=== PATIENT | female | born 1950 | race Caucasian/White ===

== ENCOUNTER 2019-04-28 09:29 | Emergency (ER) | payer MEDICARE, OTHER ==
[2019-04-28] MEDS ORDERED: Gabapentin 300 MG Cap PO ONE (09:55)
[2019-04-28] MEDS ORDERED: Ketorolac 30 MG/ML SDV IM ONE (09:55)
--- NOTE | 2019-04-28 10:04 | EDM.PDOC ---
ED HPI GENERAL MEDICAL PROBLEM - General Chief Complaint: Upper Extremity Injury/Pain Stated Complaint: PAIN IN UPPER LEFT CHEST/SHOULDER AND NECK Time Seen by Provider: 04/28/19 09:45 Source of Information: Reports: Patient History Limitations: Reports: No Limitations - History of Present Illness INITIAL COMMENTS - FREE TEXT/NARRATIVE: Patient comes into the emergency department with complaint of left sided back and axillary discomfort. Patient states she did receive a single vaccine earlier in the week in the left arm and did not have any significant difficulties or complications. She did not redness at the site but that resolved within a day. Patient started having pain and discomfort in the above area about 3 days ago. She states it is pinpoint, reproducible, hurts to move or extend her arms over her head, or take a deep breath. She states that someone does try to touch the region of her left scapular region it was illicit severe amount of pain and discomfort. Patient states she was lifting an object overhead when the injury occurred. She did call the clinic to make an appointment however they stated that she needed to be seen in the emergency department. Patient denies any chest pain, shortness of breath, nausea, vomiting , diaphoresis, GI upset, or peripheral edema. Onset: Gradual Duration: Constant Location: Reports: Back Quality: Reports: Burning, Stabbing, Throbbing Severity: Moderate Improves with: Reports: None Worsens with: Reports: None Associated Symptoms: Reports: No Other Symptoms Left Upper Arm Pain Score (Numeric/FACES): 7 - Related Data Allergies Allergy/AdvReac Type Severity Reaction Status Date / Time rofecoxib [From Vioxx] Allergy Cannot Verified 04/28/19 09:[address] contrast Allergy Itching Uncoded 09/03/18 11:56 Home Meds: Home Meds ALPRAZolam [Xanax] 0.25 mg PO Q8H PRN 03/20/16 [History] Albuterol [Ventolin HFA] 1 - 2 puff INH Q4H PRN 03/20/16 [History] Budesonide/Formoterol Fumarate [Symbicort 160-4.5 Mcg Inhaler] 1 puff IH Q4H PRN 03/20/16 [History] Cholecalciferol (Vitamin D3) [Vitamin D3] 1,000 unit PO DAILY 03/20/16 [History] Losartan [Cozaar] 100 mg PO DAILY 03/20/16 [History] Multivitamin [Multivitamins] 1 each PO DAILY 03/20/16 [History] Simvastatin [Zocor] 5 mg PO BEDTIME 03/20/16 [History] hydrOXYzine HCl [Atarax] 25 mg PO QID PRN 03/20/16 [History] hydroCHLOROthiazide [Hydrochlorothiazide] 50 mg PO DAILY 03/20/16 [History] Cyclobenzaprine [Flexeril] 10 mg PO TID PRN #15 tab 04/28/19 [Rx] Past Medical History Cardiovascular History: Reports: High Cholesterol, Hypertension Respiratory History: Reports: Asthma Genitourinary History: Reports: Renal Calculus, UTI, Recurrent Review of Systems - Review of Systems Review Of Systems: See Below Constitutional: Reports: No Symptoms Eyes: Reports: No Symptoms Ears: Reports: No Symptoms Nose: Reports: No Symptoms Mouth/Throat: Reports: No Symptoms Respiratory: Reports: No Symptoms Cardiovascular: Reports: No Symptoms GI/Abdominal: Reports: No Symptoms Genitourinary: Reports: No Symptoms Musculoskeletal: Reports: No Symptoms Skin: Reports: No Symptoms Neurological: Reports: No Symptoms ED EXAM, GENERAL - Physical Exam Exam: See Below Exam Limited By: No Limitations General Appearance: Alert, WD/WN, Moderate Distress Head: Atraumatic, Normocephalic Neck: Normal Inspection, Supple, Non-Tender, Full Range of Motion Respiratory/Chest: No Respiratory Distress, Lungs Clear, Normal Breath Sounds, No Accessory Muscle Use, Chest Non-Tender Cardiovascular: Normal Peripheral Pulses, Regular Rate, Rhythm, No Edema, No Murmur GI/Abdominal: Normal Bowel Sounds, Soft, Non-Tender, No Distention Back Exam: Normal Inspection, Full Range of Motion, Muscle Spasm (left scapula pinpoint tenderness, mild muscle spasms noted. Reproducible discomfort. No redness, ecchymosis or warmth noted) Extremities: Normal Inspection, Normal Range of Motion Neurological: Alert, Oriented, Normal Gait Skin Exam: Warm, Dry, Intact, Normal Color Course - Vital Signs Last Recorded V/S: Last Vital Signs Temp 37.3 C 04/28/19 09:33 Pulse 89 04/28/19 09:33 Resp 20 04/28/19 09:33 BP 146/68 H 04/28/19 09:33 Pulse Ox 95 04/28/19 09:33 - Orders/Labs/Meds Labs: Laboratory Tests 04/28/19 04/28/19 Range/Units 10:13 10:13 WBC 13.4 H (4.0-10.0) x10^3/uL RBC 4.89 (4.00-5.50) x10^6/uL Hgb 12.7 (12.0-16.0) g/dL Hct 40.0 (33.0-47.0) % MCV 81.8 D (78.0-93.0) fL MCH 26.0 (26.0-32.0) pg MCHC 31.8 L (32.0-36.0) g/dL RDW Coeff of Alyssa 15.3 H (10.0-15.0) % Plt Count 286 (130-400) x10^3/uL Neut % (Auto) 71.5 (50.0-80.0) % Lymph % (Auto) 16.1 L (25.0-50.0) % Bond % (Auto) 8.8 (2.0-11.0) % Eos % (Auto) 3.5 (0.0-4.0) % Baso % (Auto) 0.1 L (0.2-1.2) % Sodium 143 (136-145) mmol/L Potassium 4.3 (3.5-5.1) mmol/L Chloride 101 (98-107) mmol/L Carbon Dioxide 29 (21-32) mmol/L Anion Gap 17.3 (10-20) mmol/L BUN 20 H (7-18) mg/dL Creatinine 0.8 (0.55-1.02) mg/dL Est Cr Clr Drug Dosing TNP Estimated GFR (MDRD) > 60 Glucose 133 H (74-106) mg/dL Calcium 9.8 (8.5-10.1) mg/dL Corrected Calcium 10.12 H (8.5-10.1) mg/dL Total Bilirubin 0.5 (0.2-1.0) mg/dL AST 14 L (15-37) U/L ALT 21 (14-59) U/L Alkaline Phosphatase 86 (46-116) U/L Troponin I < 0.017 (<=0.056) ng/mL Total Protein 8.0 (6.4-8.2) g/dL Albumin 3.6 (3.4-5.0) g/dL Globulin 4.4 Albumin/Globulin Ratio 0.82 Meds: Medications Discontinued Medications Generic Name Dose Route Start Last Admin Trade Name Bryceq PRN Reason Stop Dose Admin Gabapentin 300 mg 04/28/19 09:55 04/28/19 10:31 Neurontin PO 04/28/19 09:56 300 mg ONETIME ONE Administration Ketorolac Tromethamine 30 mg 04/28/19 09:55 04/28/19 10:15 Toradol IM 04/28/19 09:56 30 mg ONETIME ONE Administration Orphenadrine Citrate 60 mg 04/28/19 09:55 04/28/19 10:15 Norflex IM 04/28/19 09:56 60 mg ONETIME ONE Administration Departure - Departure Time of Disposition: 10:53 Disposition: Home, Self-Care 01 Clinical Impression: Spasm - Discharge Information *PRESCRIPTION DRUG MONITORING PROGRAM REVIEWED*: Not Applicable *COPY OF PRESCRIPTION DRUG MONITORING REPORT IN PATIENT ROSARIO: Not Applicable Prescriptions: Cyclobenzaprine [Flexeril] 10 mg PO TID PRN #15 tab PRN Reason: Pain (Severe 7-10) Instructions: Muscle Cramps and Spasms, [id number], Cyclobenzaprine tablets, Gabapentin capsules or tablets, Ketorolac tablets, Heat Therapy, [id number] Referrals: Margie Cervantes MD [Primary Care Provider] - Forms: ED Department Discharge Additional Instructions: 1. rest 2. can apply ice and heat to the area 3-4 times a day 20 mins each time 3. Can take [id number] Tylenol or ibuprofen help with any pain or discomfort 4. Take muscle relaxants only for moderate to severe pain. Do not drive or operate any heavy machinery for can alter your bodies response 5. activity and diet as tolerated 6. Follow up as needed 7. Call with any questions or concerns Sepsis Event Note - Evaluation Sepsis Screening Result: No Definite Risk - Focused Exam Vital Signs: Vital Signs Temp Pulse Resp BP Pulse Ox 04/28/19 09:33 37.3 C 89 20 146/68 H 95 Date Exam was Performed: 04/28/19 Time Exam was Performed: 10:53 - Problem List Review Problem List Initiated/Reviewed/Updated: Yes - Assessment/Plan Assessment:: 1. Left shoulder pain Plan: 1. EKG completed in the ER. Results reviewed with the patient 2. Labs completed in the ER. Results reviewed with patient 3. Toradol, gabapentin, and Norflex given in the emergency department to alleviate pain and discomfort 4. chest x-ray completed in the emergency department 5. Education regarding activity, diet, [id number] medication and follow- up care provided 6. All questions and concerns addressed prior to patient's discharge
[2019-04-28 10:42] LABS: CHLORIDE,CL 101 mmol/L (98-107); SODIUM,NA 143 mmol/L (136-145)
[2019-04-28 10:44] LABS: ANION GAP 17.3 mmol/L (10-20)
--- NOTE | 2019-04-28 10:44 | CR ---
[id number] RAD/RAD Chest PA And Lateral EXAM: RAD Chest PA And Lateral INDICATION: RIGHT SIDE CHEST/BACK PAIN. COMPARISON: None. DISCUSSION: Cardiomediastinal silhouette is normal in size and contour. No infiltrate, effusion, pneumothorax, or edema. Pulmonary hyperinflation. IMPRESSION: No acute cardiopulmonary abnormality. Cameron Johnson DO 04/28/19 1043 Thank you for allowing us to participate in the care of your patient.
== END 2019-04-28 10:54 | disposition home or self-care (01) ==
LOC: VM.ED 09:29
DX: M62.830 Muscle spasm of back (principal); J45.909 Unspecified asthma, uncomplicated; I10 Essential (primary) hypertension; E78.00 Pure hypercholesterolemia, unspecified; Z88.8 Allergy status to other drugs, medicaments and biological substances; Z91.041 Radiographic dye allergy status; Z79.899 Other long term (current) drug therapy
CPT/HCPCS: 36415; 71046; 80053; 84484; 85025; 96372; 99283-25; 99283-GF; A9270-GY; J1885; J2360

== ENCOUNTER 2020-07-01 14:52 | Emergency (ER) | payer MEDICARE, OTHER ==
[2020-07-01] MEDS ORDERED: Sodium Chloride 0.9% 10 ML Syringe FLUSH PRN (14:55)
[2020-07-01] MEDS ORDERED: Ondansetron 4 MG/2 ML SDV IVPUSH ONE (14:57)
[2020-07-01] MEDS ORDERED: HYDROmorphone 1 MG/ML Syringe IVPUSH ONE ×2 (14:57→16:53)
[2020-07-01] MEDS ORDERED: Ketorolac 15 MG/ML SDV IVPUSH ONE (14:58)
[2020-07-01] MEDS ORDERED: Sodium Chloride 0.9% 1,000 ML IV SCH (15:00)
--- NOTE | 2020-07-01 15:18 | EDM.PDOC ---
ED HPI GENERAL MEDICAL PROBLEM - General Stated Complaint: KIDNEY STONE Time Seen by Provider: 07/01/20 14:58 Source of Information: Reports: Patient History Limitations: Reports: No Limitations - History of Present Illness INITIAL COMMENTS - FREE TEXT/NARRATIVE: Pt. presents to ER with complaints of L sided flank pain that started at approx. 1300 this afternoon. Pt. has a longstanding history of kidney stones, and has had numerous surgeries and lithotripsies in the past for this. Last episode was on March for renal calculi with hydronephrosis, where she underwent bilateral stenting, laser lithotripsy and cystoscopy/urethroscopy. She states that the discomfort is consistent with previous stones. Pt. states that she has been experiencing hematuria. She states that this is a common finding. She is not currently anticoagulated. She complains of severe, 7/10 pain. No fever or chills. No chest pain or shortness of breath. Onset: Today Onset Date: 07/01/20 Onset Time: 13:00 Location: Reports: Back (R sided flank pain) Quality: Reports: Sharp, Stabbing Left Flank Pain Score (Numeric/FACES): 7 - Related Data Allergies Allergy/AdvReac Type Severity Reaction Status Date / Time rofecoxib [From Vioxx] Allergy Cannot Verified 07/01/20 15:[address] contrast Allergy Itching Uncoded 07/01/20 15:29 Home Meds: Home Meds ALPRAZolam [Xanax] 0.25 mg PO Q8H PRN 03/20/16 [History] Albuterol [Ventolin HFA] 1 - 2 puff INH Q4H PRN 03/20/16 [History] Cholecalciferol (Vitamin D3) [Vitamin D3] 1,000 unit PO DAILY 03/20/16 [History] Losartan [Cozaar] 100 mg PO DAILY 03/20/16 [History] Multivitamin [Multivitamins] 1 each PO DAILY 03/20/16 [History] Simvastatin [Zocor] 5 mg PO BEDTIME 03/20/16 [History] hydroCHLOROthiazide [Hydrochlorothiazide] 50 mg PO DAILY 03/20/16 [History] Acetaminophen 1,000 mg PO Q6H PRN 07/01/20 [History] Aspirin 81 mg PO DAILY 07/01/20 [History] Fluticasone/Vilanterol [Breo Ellipta 100-25 MCG Inhalation Kit] 1 each IH DAILY 07/01/20 [History] Metoprolol Succinate [Toprol XL] 25 mg PO DAILY 07/01/20 [History] Montelukast [Singulair] 10 mg PO DAILY 07/01/20 [History] metFORMIN [Glucophage XR] 500 mg PO BIDMEALS 07/01/20 [History] Past Medical History Cardiovascular History: Reports: High Cholesterol, Hypertension Respiratory History: Reports: Asthma Genitourinary History: Reports: Renal Calculus, UTI, Recurrent - Past Surgical History GI Surgical History: Reports: Hernia Repair/Other ED ROS GENERAL - Review of Systems Review Of Systems: See Below Constitutional: Reports: No Symptoms HEENT: Reports: No Symptoms Respiratory: Reports: No Symptoms Cardiovascular: Reports: No Symptoms Endocrine: Reports: No Symptoms GI/Abdominal: Reports: No Symptoms : Reports: Flank Pain, Hematuria Musculoskeletal: Reports: No Symptoms Skin: Reports: No Symptoms Neurological: Reports: No Symptoms Psychiatric: Reports: No Symptoms Hematologic/Lymphatic: Reports: No Symptoms Immunologic: Reports: No Symptoms ED EXAM, GENERAL - Physical Exam Exam: See Below Exam Limited By: No Limitations General Appearance: Alert, WD/WN, No Apparent Distress Head: Atraumatic, Normocephalic Neck: Normal Inspection, Supple, Non-Tender Respiratory/Chest: No Respiratory Distress, Lungs Clear, Normal Breath Sounds, No Accessory Muscle Use, Chest Non-Tender Cardiovascular: Normal Peripheral Pulses, Regular Rate, Rhythm, No Edema, No Murmur Peripheral Pulses: 4+: Radial (L) GI/Abdominal: Soft, No Distention, No Mass (Female) Exam: Deferred Rectal (Female) Exam: Deferred Back Exam: Normal Inspection, Full Range of Motion, CVA Tenderness (L) Extremities: Normal Inspection, Normal Range of Motion, Non-Tender, No Pedal Edema, Normal Capillary Refill Neurological: Alert, Oriented, CN II-XII Intact, Normal Cognition, Normal Gait, Normal Reflexes, No Motor/Sensory Deficits Psychiatric: Normal Affect, Normal Mood, Anxious Skin Exam: Warm, Dry, Intact, Normal Color Lymphatic: No Adenopathy Course - Vital Signs Last Recorded V/S: Last Vital Signs Temp 36.8 C 07/01/20 14:58 Pulse 104 H 07/01/20 14:58 Resp 20 07/01/20 14:58 BP 155/82 H 07/01/20 14:58 Pulse Ox 96 07/01/20 14:58 - Orders/Labs/Meds Orders: Active Orders 24 hr Category Date Time Status CULTURE URINE [RM] Stat Lab 07/01/20 15:41 Received Peripheral IV Insertion Adult [OM.PC] Routine Oth 07/01/20 14:56 Ordered Labs: Laboratory Tests 07/01/20 07/01/20 07/01/20 Range/Units 15:05 15:05 15:05 WBC 10.9 H (4.0-10.0) x10^3/uL RBC 4.86 (4.00-5.50) x10^6/uL Hgb 12.8 (12.0-16.0) g/dL Hct 40.2 (33.0-47.0) % MCV 82.7 (78.0-93.0) fL MCH 26.3 (26.0-32.0) pg MCHC 31.8 L (32.0-36.0) g/dL RDW Coeff of Alyssa 15.1 H (10.0-15.0) % Plt Count 307 (130-400) x10^3/uL Neut % (Auto) 62.6 (50.0-80.0) % Lymph % (Auto) 23.8 L (25.0-50.0) % Lea % (Auto) 8.6 (2.0-11.0) % Eos % (Auto) 4.7 H (0.0-4.0) % Baso % (Auto) 0.3 (0.2-1.2) % PT 10.4 (9.9-12.5) SEC INR 0.9 L (2.0-3.5) APTT 24.8 L (25.6-32.8) SEC Sodium 142 (136-145) mmol/L Potassium 3.9 (3.5-5.1) mmol/L Chloride 102 (98-107) mmol/L Carbon Dioxide 28 (21-32) mmol/L Anion Gap 15.9 H (5-15) mmol/L BUN 20 H (7-18) mg/dL Creatinine 0.9 (0.55-1.02) mg/dL Est Cr Clr Drug Dosing TNP Estimated GFR (MDRD) > 60 Glucose 111 H (74-106) mg/dL Calcium 9.4 (8.5-10.1) mg/dL Corrected Calcium 9.64 (8.5-10.1) mg/dL Total Bilirubin 0.4 (0.2-1.0) mg/dL AST 30 (15-37) U/L ALT 41 (14-59) U/L Alkaline Phosphatase 87 (46-116) U/L C-Reactive Protein 1.8 H (<=0.9) mg/dL Total Protein 7.9 (6.4-8.2) g/dL Albumin 3.7 (3.4-5.0) g/dL Globulin 4.2 Albumin/Globulin Ratio 0.88 Urine Color (YELLOW) Urine Appearance (CLEAR) Urine pH (5.0-8.0) Ur Specific Campbell Urine Protein (NEGATIVE) mg/dL Urine Glucose (UA) (NEGATIVE) mg/dL Urine Ketones (NEGATIVE) mg/dL Urine Occult Blood (NEGATIVE) Urine Nitrite (NEGATIVE) Urine Bilirubin (NEGATIVE) Urine Urobilinogen (0.2) EU/dL Ur Leukocyte Esterase (NEGATIVE) Urine RBC (NOT SEEN) /HPF Urine WBC (NOT SEEN) /HPF Ur Squamous Epith Cells (NOT SEEN) /HPF Urine Bacteria (NOT SEEN) /HPF 07/01/ Range/Units 15:41 WBC (4.0-10.0) x10^3/uL RBC (4.00-5.50) x10^6/uL Hgb (12.0-16.0) g/dL Hct (33.0-47.0) % MCV (78.0-93.0) fL MCH (26.0-32.0) pg MCHC (32.0-36.0) g/dL RDW Coeff of Alyssa (10.0-15.0) % Plt Count (130-400) x10^3/uL Neut % (Auto) (50.0-80.0) % Lymph % (Auto) (25.0-50.0) % Lea % (Auto) (2.0-11.0) % Eos % (Auto) (0.0-4.0) % Baso % (Auto) (0.2-1.2) % PT (9.9-12.5) SEC INR (2.0-3.5) APTT (25.6-32.8) SEC Sodium (136-145) mmol/L Potassium (3.5-5.1) mmol/L Chloride (98-107) mmol/L Carbon Dioxide (21-32) mmol/L Anion Gap (5-15) mmol/L BUN (7-18) mg/dL Creatinine (0.55-1.02) mg/dL Est Cr Clr Drug Dosing Estimated GFR (MDRD) Glucose (74-106) mg/dL Calcium (8.5-10.1) mg/dL Corrected Calcium (8.5-10.1) mg/dL Total Bilirubin (0.2-1.0) mg/dL AST (15-37) U/L ALT (14-59) U/L Alkaline Phosphatase (46-116) U/L C-Reactive Protein (<=0.9) mg/dL Total Protein (6.4-8.2) g/dL Albumin (3.4-5.0) g/dL Globulin Albumin/Globulin Ratio Urine Color Yellow (YELLOW) Urine Appearance Slightly cloudy H (CLEAR) Urine pH 7.0 (5.0-8.0) Ur Specific Campbell >=1.030 Urine Protein 30 H (NEGATIVE) mg/dL Urine Glucose (UA) Negative (NEGATIVE) mg/dL Urine Ketones Negative (NEGATIVE) mg/dL Urine Occult Blood Negative (NEGATIVE) Urine Nitrite Negative (NEGATIVE) Urine Bilirubin Negative (NEGATIVE) Urine Urobilinogen 0.2 (0.2) EU/dL Ur Leukocyte Esterase Small H (NEGATIVE) Urine RBC 0-5 (NOT SEEN) /HPF Urine WBC 20-30 H (NOT SEEN) /HPF Ur Squamous Epith Cells Moderate H (NOT SEEN) /HPF Urine Bacteria Few H (NOT SEEN) /HPF Meds: Medications Discontinued Medications Generic Name Dose Route Start Last Admin Trade Name Freq PRN Reason Stop Dose Admin Hydrocodone Bitart/Acetaminophen 1 packet 07/01/20 19:04 07/01/20 19:13 Take Home: Acetaminophen/Hydrocodone 325-10 Mg, 5 Tab Pack PO 07/01/20 19:05 1 packet ONETIME ONE Administration Diphenhydramine HCl 50 mg 07/01/20 17:38 07/01/20 17:43 Diphenhydramine 50 Mg/Ml Sdv IVPUSH 07/01/20 17:39 50 mg ONETIME ONE Administration Hydromorphone HCl 1 mg 07/01/20 14:57 07/01/20 15:13 Hydromorphone 1 Mg/Ml Syringe IVPUSH 07/01/20 14:58 1 mg ONETIME ONE Administration Hydromorphone HCl 1 mg 07/01/20 16:53 07/01/20 16:58 Hydromorphone 1 Mg/Ml Syringe IVPUSH 07/01/20 16:54 1 mg ONETIME ONE Administration Sodium Chloride 1,000 mls @ 1,000 mls/hr 07/01/20 15:00 07/01/20 15:10 Normal Saline IV 1,000 mls/hr ASDIRECTED EUSEBIO Administration Iopamidol 100 ml 07/01/20 17:38 07/01/20 17:38 Iopamidol 612 Mg/Ml 100 Ml Bottle IVPUSH 07/01/20 17:39 100 ml ONETIME ONE Administration Ketorolac Tromethamine 15 mg 07/01/20 14:58 07/01/20 15:11 Ketorolac 15 Mg/Ml Sdv IVPUSH 07/01/20 14:59 15 mg ONETIME ONE Administration Ondansetron HCl 4 mg 07/01/20 14:57 07/01/20 15:10 Ondansetron 4 Mg/2 Ml Sdv IVPUSH 07/01/20 14:58 4 mg ONETIME ONE Administration Sodium Chloride 10 ml 07/01/20 14:55 Sodium Chloride 0.9% 10 Ml Syringe FLUSH ASDIRECTED PRN Keep Vein Open Tamsulosin HCl 0.4 mg 07/01/20 19:05 07/01/20 19:13 Tamsulosin 0.4 Mg Cap.Er PO 07/01/20 19:06 0.4 mg ONETIME ONE Administration - Radiology Interpretation Free Text/Narrative:: Non-contrast CT abdomen/pelvis obtained. 2 mm L ureteral stone with moderate hydro. Also noted to have a 4 mm non-obstructing stone. Pt. has a mass on the L kidney measuring approx. 40mm. Contrast CT abd/pelvis was obtained. Radiologist does not favor metastatic d isease. Urologist feels that the lesion in question is a subcapsular fluid collection that is residual from her last stone extraction surgery. He does not feel that this is secondary to hydronephrosis. - Re-Assessments/Exams Free Text/Narrative Re-Assessment/Exam: IV access established. Pt. was given a liter of NS IV, zofran 4mg IV, dilaudid 1mg IV, and toradol 15mg IV. She reported rapid improvement in discomfort. Pt. states that pain was starting to return. She was given a second dose of dilaudid 1mg IV and was fairly comfortable during the rest of her stay in ER. Pt. did have some mild rash after having the IV dye, but no signs of severe reaction, such as trouble breathing, throat tightness. Symptoms were managed with IV diphenhydramine. Departure - Departure Time of Disposition: 17:00 Disposition: Home, Self-Care 01 Clinical Impression: Kidney stone - Discharge Information Instructions: Acetaminophen; Hydrocodone tablets or capsules, Kidney Stones, Nitrofurantoin tablets or capsules, Tamsulosin capsules, Probiotics Referrals: Margie Cervantes MD [Primary Care Provider] - Forms: ED Department Discharge Additional Instructions: Home to rest. increase your intake of fluids. Aim for 10 large glasses a day. [place] 10/325mg 1 every 4-6 hours as needed for pain Ibuprofen 200mg 3 tabs every 8 hours as needed for pain Flomax 0.4mg 1 tab daily to help pass stone. Marcobid 100mg 1 twice daily for 5 days Diphenhydramine 25mg 2 tabs every 4-6 hours as needed for itching. Collect stones and bring them in to clinic for analysis. If you are having pain that is not amenable to oral pain medication or if you are vomiting/unable to hold down fluids, return to ER (either here or [facility]). Follow-up with Dr. Carrion in the next week or so. Sepsis Event Note (ED) - Focused Exam Vital Signs: Vital Signs Temp Pulse Resp BP Pulse Ox 07/01/20 14:58 36.8 C 104 H 20 155/82 H 96 - Problem List Review Problem List Initiated/Reviewed/Updated: Yes - My Orders Last 24 Hours: My Active Orders 07/01/20 14:56 Peripheral IV Insertion Adult [OM.PC] Routine 07/01/20 15:41 CULTURE URINE [RM] Stat - Assessment/Plan Last 24 Hours: My Active Orders 07/01/20 14:56 Peripheral IV Insertion Adult [OM.PC] Routine 07/01/20 15:41 CULTURE URINE [RM] Stat Plan: Home to rest. increase your intake of fluids. Aim for 10 large glasses a day. [place] 10/325mg 1 every 4-6 hours as needed for pain Ibuprofen 200mg 3 tabs every 8 hours as needed for pain Flomax 0.4mg 1 tab daily to help pass stone. Marcobid 100mg 1 twice daily for 5 days Diphenhydramine 25mg 2 tabs every 4-6 hours as needed for itching. Collect stones and bring them in to clinic for analysis. If you are having pain that is not amenable to oral pain medication or if you are vomiting/unable to hold down fluids, return to ER (either here or [facility]). Follow-up with Dr. Carrion in the next week or so.
[2020-07-01 15:28] LABS: PTT,PARTIAL THROMBOPLSTIN TIME 24.8 SEC (25.6-32.8)
[2020-07-01 15:31] LABS: CHLORIDE,CL 102 mmol/L (98-107); SODIUM,NA 142 mmol/L (136-145)
[2020-07-01 15:38] LABS: ANION GAP 15.9 mmol/L (5-15)
--- NOTE | 2020-07-01 16:39 | CT ---
[id number] CT/CT Abdomen Pelvis WO IV EXAM: CT Abdomen Pelvis WO IV CLINICAL DATA: LEFT SIDED FLANK PAIN. COMPARISON STUDY: March 11, 2020. FINDINGS: 2 mm obstructing proximal left ureteral calculus (series 3 image 53). Moderate upstream hydroureteronephrosis. Additional bilateral nonobstructing renal calculi measuring up to 3-4 mm. Overall stone burden is mild. In the left kidney inferior pole there is a 38 x 40 x 37 mm hypodense mass not seen previously. Liver demonstrates diffusely decreased density consistent with underlying steatosis. Cholecystectomy clips in the gallbladder fossa. Spleen, pancreas, and adrenal glands are unremarkable. Few scattered colonic diverticula. No evidence of acute bowel inflammation. No evidence of bowel ischemia. Small sliding-type hiatus hernia. No change in appearance of the ventral abdominal wall compared the prior examination. Findings are consistent with large herniation that appears status post repair with mesh placement. Spondylosis. Findings include advanced L4-5 and L5-S1 facet joint arthropathy resulting in grade 1 anterolisthesis at both levels. No acute fracture or compression deformity. IMPRESSION: 2 mm obstructing proximal left ureteral calculus with moderate upstream hydroureteronephrosis. Additional bilateral nonobstructing renal calculi. Hypodense left renal mass measuring up to 40 mm. Finding was not well-visualized on the prior examination, which was also performed without contrast material. Findings are concerning for underlying neoplasm. CT examination with intravenous contrast is recommended. If there is contraindication to contrast material, noncontrast MRI of the abdomen is recommended. Multiple other chronic findings are described above. Rip Perrin MD 07/01/20 [id number] Thank you for allowing us to participate in the care of your patient.
[2020-07-01] MEDS ORDERED: diphenhydrAMINE 50 MG/ML SDV IVPUSH ONE (17:38)
[2020-07-01] MEDS ORDERED: Iopamidol 612 MG/ML 100 ML Bottle IVPUSH ONE (17:38)
--- NOTE | 2020-07-01 18:00 | CT ---
[id number] CT/CT Abdomen Pelvis W IV EXAM: CT Abdomen Pelvis W IV CLINICAL DATA: LEFT RENAL MASS. MINOR REACTION TO CONTRAST IN THE COMPARISON STUDY: Today. FINDINGS: There is a lentiform-shaped hypodense structure along the posterior aspect of the left kidney measuring 62 x 22 x 43 mm. This appears to exert mass effect on the adjacent renal parenchyma. Appearance is most consistent with a subcapsular fluid collection. Comparison to noncontrast examination from earlier today demonstrates no significant enhancement. Density is slightly higher than simple fluid and is possibly resolving subcapsular hematoma. No evidence of malignancy in either kidney. No change in position of previously seen and described obstructing proximal left ureteral calculus with upstream hydroureteronephrosis. IMPRESSION: Evaluation of the left kidney demonstrates hypodense left subcapsular fluid collection. No significant enhancement. Density is slightly higher than that of water suggesting possible resolving subcapsular hematoma. Consider follow-up contrast-enhanced CT examination in 2-4 weeks to assess for stability and/or resolution. Rip Perrin MD 07/01/20 [id number] Thank you for allowing us to participate in the care of your patient.
[2020-07-01] MEDS ORDERED: Take Home: Acetaminophen/HYDROcodone 325-10 MG, 5 Tab Pack PO ONE (19:04)
[2020-07-01] MEDS ORDERED: Tamsulosin 0.4 MG Cap.ER PO ONE (19:05)
== END 2020-07-01 19:18 | disposition home or self-care (01) ==
LOC: VM.ED 14:52
DX: N13.2 Hydronephrosis with renal and ureteral calculous obstruction (principal); E78.00 Pure hypercholesterolemia, unspecified; I10 Essential (primary) hypertension; J45.909 Unspecified asthma, uncomplicated; Z87.440 Personal history of urinary (tract) infections; Z87.442 Personal history of urinary calculi; Z91.041 Radiographic dye allergy status; Z88.8 Allergy status to other drugs, medicaments and biological substances; Z79.82 Long term (current) use of aspirin; Z79.899 Other long term (current) drug therapy
CPT/HCPCS: 74176; 74177; 80053; 81001; 85025; 85610; 85730; 86140; 87086; 96374; 96375; 96376; 99283; 99284-25; A9270-GY; J1170; J1200; J1885; J2405; J7030; Q9967

== ENCOUNTER 2020-12-19 19:59 | Emergency (ER) | payer MEDICARE, OTHER ==
[2020-12-19] MEDS ORDERED: Sodium Chloride 0.9% 10 ML Syringe FLUSH PRN (20:25)
--- NOTE | 2020-12-19 20:27 | EDM.PDOC ---
ED HPI GENERAL MEDICAL PROBLEM - General Stated Complaint: EXTREME PAIN IN R SIDE Time Seen by Provider: 12/19/20 20:20 Source of Information: Reports: Patient History Limitations: Reports: No Limitations - History of Present Illness INITIAL COMMENTS - FREE TEXT/NARRATIVE: Patient comes emergency department today with complaints of right-sided flank pain. This patient has had rather sudden onset of right flank pain starting about 1800 hrs. tonight. She did take some Aleve prior to arrival and she did have some improvement of the pain. She is quite concerned of a history of a kidney stone. She has had 12-14 kidney stones in the past. She is needed multiple stents as well as the ureter dilation in the past for her kidney stones. She has had no dysuria hematuria or urinary frequency. She does have some right flank pain that is sharp shooting stabbing comes and goes. Does not get worse with movement. She has no other abdominal pain. No nausea no vomiting. No chest pain no shortness of breath or difficulty breathing. No black or tarry stools or constipation. Right flank Pain Score (Numeric/FACES): 1 - Related Data Allergies Allergy/AdvReac Type Severity Reaction Status Date / Time iopamidol [From [id number]] Allergy Itching Verified 12/20/20 02:12 rofecoxib [From Vioxx] Allergy Cannot Verified 12/20/20 02:12 Remember Home Meds: Home Meds ALPRAZolam [Xanax] 0.25 mg PO Q8H PRN 03/20/16 [History] Albuterol [Ventolin HFA] 1 - 2 puff INH Q4H PRN 03/20/16 [History] Cholecalciferol (Vitamin D3) [Vitamin D3] 1,000 unit PO DAILY 03/20/16 [History] Losartan [Cozaar] 100 mg PO DAILY 03/20/16 [History] Multivitamin [Multivitamins] 1 each PO DAILY 03/20/16 [History] Simvastatin [Zocor] 5 mg PO BEDTIME 03/20/16 [History] Acetaminophen 1,000 mg PO Q6H PRN 07/01/20 [History] Aspirin 81 mg PO DAILY 07/01/20 [History] Fluticasone/Vilanterol [Breo Ellipta 100-25 MCG Inhalation Kit] 1 each IH DAILY 07/01/20 [History] Metoprolol Succinate [Toprol XL] 25 mg PO DAILY 07/01/20 [History] Montelukast [Singulair] 10 mg PO DAILY 07/01/20 [History] metFORMIN [Glucophage XR] 500 mg PO BIDMEALS 07/01/20 [History] Tamsulosin HCl [Flomax] 0.4 mg PO DAILY #7 cap.er.24h 12/19/20 [Rx] cephALEXin [Cephalexin] 500 mg PO QID #20 capsule 12/19/20 [Rx] Furosemide [Lasix] 20 mg PO DAILY 12/20/20 [History] Past Medical History Cardiovascular History: Reports: High Cholesterol, Hypertension Respiratory History: Reports: Asthma Genitourinary History: Reports: Renal Calculus, UTI, Recurrent - Past Surgical History GI Surgical History: Reports: Hernia Repair/Other Female Surgical History: Reports: Kidney stone extraction ED ROS GENERAL - Review of Systems Review Of Systems: Comprehensive ROS is negative, except as noted in HPI. ED EXAM, RENAL/ - Physical Exam Exam: See Below Exam Limited By: No Limitations General Appearance: Alert, WD/WN, Moderate Distress Respiratory/Chest: No Respiratory Distress, Lungs Clear, No Accessory Muscle Use, Chest Non-Tender Cardiovascular: Normal Peripheral Pulses, Regular Rate, Rhythm GI/Abdominal: Normal Bowel Sounds, Soft, Non-Tender (Female) Exam: Deferred Rectal (Female) Exam: Deferred Back Exam: Full Range of Motion, CVA Tenderness (R). No: CVA Tenderness (L), Paraspinal Tenderness, Vertebral Tenderness Extremities: Normal Inspection, Normal Range of Motion, Non-Tender, Normal Capillary Refill Neurological: Alert, Oriented, No Motor/Sensory Deficits Psychiatric: Anxious Skin Exam: Warm, Dry, Intact, Normal Color Lymphatic: No Adenopathy Course - Vital Signs Last Recorded V/S: Last Vital Signs Temp 98.7 F 12/19/20 19:59 Pulse 67 12/19/20 21:55 Resp 16 12/19/20 21:55 BP 154/68 H 12/19/20 21:55 Pulse Ox 97 12/19/20 19:59 - Orders/Labs/Meds Labs: Laboratory Tests 12/19/20 12/19/20 12/19/20 Range/Units 20:25 20:30 20:30 WBC 13.1 H (4.0-10.0) x10^3/uL RBC 4.70 (4.00-5.50) x10^6/uL Hgb 12.6 (12.0-16.0) g/dL Hct 38.8 (33.0-47.0) % MCV 82.6 (78.0-93.0) fL MCH 26.8 (26.0-32.0) pg MCHC 32.5 (32.0-36.0) g/dL RDW Coeff of Alyssa 14.0 (10.0-15.0) % Plt Count 297 (130-400) x10^3/uL Immature Gran % (Auto) 0.20 (0.00-0.43) % Neut % (Auto) 61.8 (50.0-80.0) % Lymph % (Auto) 24.4 L (25.0-50.0) % Mobile % (Auto) 9.2 (2.0-11.0) % Eos % (Auto) 4.2 H (0.0-4.0) % Baso % (Auto) 0.2 (0.2-1.2) % Neut # (Auto) 8.1 H (1.8-7.7) x10^3/uL Lymph # (Auto) 3.2 (1.0-4.8) x10^3/uL Mobile # (Auto) 1.2 H (0.0-0.8) x10^3/uL Eos # (Auto) 0.6 H (0.0-0.5) x10^3/uL Baso # (Auto) 0.0 (0.0-0.2) x10^3/uL Immature Gran # (Auto) 0.02 (0.00-0.07) x10^3/uL Sodium 139 (136-145) mmol/L Potassium 4.0 (3.5-5.1) mmol/L Chloride 102 (98-107) mmol/L Carbon Dioxide 28 (21-32) mmol/L Anion Gap 13.0 (5-15) mmol/L BUN 15 (7-18) mg/dL Creatinine 0.8 (0.55-1.02) mg/dL Est Cr Clr Drug Dosing TNP Estimated GFR (MDRD) > 60 Glucose 133 H (70-99) mg/dL Calcium 9.2 (8.5-10.1) mg/dL Corrected Calcium 9.5 (8.5-10.1) mg/dL Total Bilirubin 0.3 (0.2-1.0) mg/dL AST 19 (15-37) U/L ALT 31 (14-59) U/L Alkaline Phosphatase 92 (46-116) U/L C-Reactive Protein 0.9 (<=0.9) mg/dL Total Protein 7.3 (6.4-8.2) g/dL Albumin 3.6 (3.4-5.0) g/dL Globulin 3.7 Albumin/Globulin Ratio 0.97 Urine Color Yellow (YELLOW) Urine Appearance Cloudy H (CLEAR) Urine pH 7.0 (5.0-8.0) Ur Specific [place] 1.020 Urine Protein 30 H (NEGATIVE) mg/dL Urine Glucose (UA) Negative (NEGATIVE) mg/dL Urine Ketones Trace H (NEGATIVE) mg/dL Urine Occult Blood Trace-intact H (NEGATIVE) Urine Nitrite Negative (NEGATIVE) Urine Bilirubin Negative (NEGATIVE) Urine Urobilinogen 0.2 (0.2) EU/dL Ur Leukocyte Esterase Moderate H (NEGATIVE) Urine RBC 0-5 (NOT SEEN) /HPF Urine WBC 75-100 H (NOT SEEN) /HPF Ur Squamous Epith Cells Few H (NOT SEEN) /HPF Urine Bacteria Occasional H (NOT SEEN) /HPF Urine Mucus Rare H (NOT SEEN) /LPF Meds: Medications Discontinued Medications Generic Name Dose Route Start Last Admin Trade Name Freq PRN Reason Stop Dose Admin Cephalexin 500 mg 12/19/20 21:43 12/19/20 21:58 Cephalexin 500 Mg Cap PO 12/19/20 21:44 500 mg ONETIME ONE Administration Hydromorphone HCl 0.5 mg 12/19/20 20:26 12/19/20 20:32 Hydromorphone 0.5 Mg/0.5 Ml Syringe IV 12/19/20 20:27 0.5 mg ONETIME ONE Administration Lactated Ringer's 1,000 mls @ 999 mls/hr 12/19/20 20:26 12/19/20 20:30 Ringers, Lactated IV 12/19/20 21:26 999 mls/hr ONETIME ONE Administration Ondansetron HCl 4 mg 12/19/20 20:26 12/19/20 20:30 Ondansetron 4 Mg/2 Ml Sdv IV 12/19/20 20:27 4 mg ONETIME ONE Administration Sodium Chloride 10 ml 12/19/20 20:25 Sodium Chloride 0.9% 10 Ml Syringe FLUSH ASDIRECTED PRN Keep Vein Open Tamsulosin HCl 0.4 mg 12/19/20 21:43 12/19/20 21:58 Tamsulosin 0.4 Mg Cap.Er PO 12/19/20 21:44 0.4 mg ONETIME ONE Administration - Radiology Interpretation Free Text/Narrative:: CT abdomen pelvis per radiology shows a 4.5 mm distal right ureter calculus results in mild to moderate hydronephrosis. Scattered diverticula of the colon without evidence of diverticulitis. Some other scattered chronic changes. - Re-Assessments/Exams Free Text/Narrative Re-Assessment/Exam: IV was established labs were drawn. Liter of LR 500 mill bolus. Zofran and Dilaudid. Patient does have a mild elevation of her white blood cell count of 13. CMP is rather unremarkable other than a glucose of 133. C-reactive protein is normal at 0.9. The skin with a noted stone in the right distal ureter 4.5 mm with some mild to moderate hydronephrosis. The patient had complete resolution of her pain with the above therapy. The patient clearly has concerns for urinary tract infection disease as well in the presence of a kidney stone. I did call and speak with Dr. Rodriguez the urologist automation developer at [facility]. HPI ER COURSE findings and concerns were relayed to him as well as the concerns for infection along with this stone. She shows no signs of sepsis at this time and I have placed her on Cephalexin for her UTI. At this time he is comfortable with discharging her home with close follow-up with her urologist that is well-known to her Dr. Carrion. Anything new or worse she is to recheck immediately. She is comfortable with this plan. Discharge directions as below are explained to the patient she was comfortable with this plan and her questions were answered. Departure - Departure Time of Disposition: 21:44 Disposition: Home, Self-Care 01 Clinical Impression: Bilateral nephrolithiasis, Hydronephrosis due to obstruction of ureter, Ureteral calculus UTI (urinary tract infection) Qualifiers: Urinary tract infection type: site unspecified Hematuria presence: with hematuria Qualified Code(s): N39.0 - Urinary tract infection, site not specified; R31.9 - Hematuria, unspecified - Discharge Information Prescriptions: cephALEXin [Cephalexin] 500 mg PO QID #20 capsule Tamsulosin HCl [Flomax] 0.4 mg PO DAILY #7 cap.er.24h Instructions: Low-Purine Eating Plan, Renal Colic, [id number], Kidney Stones, [id number] Referrals: Margie Cervantes MD [Primary Care Provider] - Forms: ED Department Discharge Additional Instructions: Increase fluids intake at home. Tylenol as needed for pain. You may use NSAIDs Ibuprofen Motrin but very sparingly if other methods are not therapeutic. You can use your hydrocodone at home as you have already as prescribed at home. Caution sedation. Do not take with Tylenol at the same time. Flomax 1 capsule daily for the next 5 days. RX sent to the pharmacy. With your history of infected kidney stones. Cephalexin 1 capsule 4 times a day prophylaxis for the next 5 days. First dose given in the ED and RX sent to the pharmacy. Contact your PCP on wednesday if pain has not resolved. Return to the ED if new or worsening symptoms. After discharge I did contact the patient and updated her that I incresaed her cephalexin to 7 days.
[2020-12-19] MEDS: Lactated Ringers 1,000 ML IV ONE (20:30)
[2020-12-19] MEDS: Ondansetron 4 MG/2 ML SDV IV ONE (20:30)
[2020-12-19] MEDS: HYDROmorphone 0.5 MG/0.5 ML Syringe IV ONE (20:32)
[2020-12-19 21:02] LABS: CHLORIDE,CL 102 mmol/L (98-107); SODIUM,NA 139 mmol/L (136-145)
[2020-12-19] MEDS: Cephalexin 500 MG Cap PO ONE (21:58)
[2020-12-19] MEDS: Tamsulosin 0.4 MG Cap.ER PO ONE (21:58)
--- NOTE | 2020-12-20 08:12 | CT ---
[id number] CT/CT Abdomen Pelvis WO IV EXAM: ABDOMEN AND PELVIS CT WITHOUT CONTRAST INDICATION: Right flank pain with history of kidney stones. Several surgeries for renal stones, hysterectomy, cholecystectomy, appendectomy, and hernia repair. COMPARISON: July 01, 2020. DISCUSSION: A 4.5 mm distal right ureteral calculus results in mild to moderate right hydroureteronephrosis. There are other small nonobstructing calculi scattered throughout both kidneys. No left ureteral calculus or hydronephrosis. The uterus, appendix, and gallbladder are surgically absent. Diastases recti with evidence of prior mesh abdominal wall hernia repair. Scattered diverticula of the colon without evidence of diverticulitis. Unenhanced images of the liver, spleen, pancreas, adrenal glands, and small bowel are unremarkable. No adenopathy, free air free fluid. Grade 1 L4-L5 spondylolisthesis. Scattered degenerative changes. IMPRESSION: 1. A 4.5 mm distal right ureteral calculus results in mild to moderate hydroureteronephrosis. John Melendez MD 12/20/20 0849 Thank you for allowing us to participate in the care of your patient.
== END 2020-12-19 22:04 | disposition home or self-care (01) ==
LOC: VM.ED 19:59
DX: N13.2 Hydronephrosis with renal and ureteral calculous obstruction (principal); N39.0 Urinary tract infection, site not specified; R31.9 Hematuria, unspecified; E78.00 Pure hypercholesterolemia, unspecified; I10 Essential (primary) hypertension; Z79.82 Long term (current) use of aspirin; Z79.899 Other long term (current) drug therapy; Z88.8 Allergy status to other drugs, medicaments and biological substances; Z91.041 Radiographic dye allergy status
CPT/HCPCS: 74176; 80053; 81001; 85025; 86140; 87086; 96374; 96375; 99284; 99284-25; A9270-GY; J1170; J2405; J7120

== ENCOUNTER 2022-05-29 10:30 | Emergency (ER) | payer MEDICARE, OTHER ==
[2022-05-29] MEDS ORDERED: Sodium Chloride 0.9% 10 ML Syringe FLUSH PRN (10:52)
[2022-05-29] MEDS: Sodium Chloride 0.9% 1,000 ML IV SCH (11:00)
[2022-05-29] MEDS: Ondansetron 4 MG/2 ML SDV IVPUSH ONE (11:02)
[2022-05-29] MEDS: Ketorolac 15 MG/ML SDV IVPUSH ONE (11:04)
[2022-05-29] MEDS: HYDROmorphone 1 MG/ML Syringe IVPUSH ONE (11:07)
[2022-05-29 11:24] LABS: ANION GAP 16.3 mmol/L (5-15); CHLORIDE,CL 102 mmol/L (98-107); ESTIMATED GFR 68 mL/min (>=60); SODIUM,NA 142 mmol/L (136-145)
[2022-05-29] MEDS: cefTRIAXone 2 GM Vial IVPUSH ONE (12:38)
== END 2022-05-29 12:50 | disposition home or self-care (01) ==
LOC: VM.ED 10:30
DX: N23 Unspecified renal colic (principal); N39.0 Urinary tract infection, site not specified; E78.00 Pure hypercholesterolemia, unspecified; I10 Essential (primary) hypertension; J45.909 Unspecified asthma, uncomplicated; Z87.442 Personal history of urinary calculi; Z79.82 Long term (current) use of aspirin; Z79.84 Long term (current) use of oral hypoglycemic drugs; Z79.899 Other long term (current) drug therapy; Z91.041 Radiographic dye allergy status; Z88.2 Allergy status to sulfonamides; Z88.6 Allergy status to analgesic agent
CPT/HCPCS: 36415; 74176; 80053; 81001; 85025; 87086; 96361; 96374; 96375; 99284; 99284-25; J0696; J1170; J1885; J2405; J7030

== ENCOUNTER 2022-10-08 00:17 | Observation (INO) | payer MEDICARE, OTHER | END 2022-10-08 10:40 | disposition home or self-care (01) | LOC: VM.ED 00:17 → VM.MS 01:38 | PROVIDERS: ADMIT Physician Assistant Medical ==